=== PATIENT | female | born 1940 | race Caucasian/White ===

== ENCOUNTER 2018-12-04 10:45 | Outpatient (CLI) | payer MEDICARE, MEDICAID | END 2018-12-04 23:59 | disposition home or self-care (01) | LOC: STAR 10:45 | PROVIDERS: ATTEND Orthopaedic Surgery | DX: Z01.818 Encounter for other preprocedural examination (principal); M17.12 Unilateral primary osteoarthritis, left knee | CPT/HCPCS: 36415; 80053; 85025; 87081; 93005 ==